=== PATIENT | female | born 1985 | race American Indian/Alaskan Native ===

== ENCOUNTER 2017-03-24 12:16 | Emergency (ER) | payer SELFPAY ==
[2017-03-24 12:28] VITALS: BP 139/91
[2017-03-24 12:50] LABS: Basophils % (Auto) 0.6 % (0.0-1.8); Eosinophils % (Auto) 5.7 % (0.0-4.3); Hematocrit 36.9 % (30.3-42.9); Hemoglobin 12.3 gm/dl (10.1-14.3); Mean Corpuscular HGB Conc 33 % (30-34); Mean Corpuscular Hemoglobin 33 pg (28-32); Mean Corpuscular Volume 98 fl (79-97); Platelet Count 277 K/mm3 (140-440); Red Blood Count 3.75 M/mm3 (3.65-5.03); Red Cell Distribution Width 15.4 % (13.2-15.2); White Blood Count 9.5 K/mm3 (4.5-11.0)
[2017-03-24 13:05] LABS: Anion Gap 16 mmol/L; BUN/Creatinine Ratio 12; Blood Urea Nitrogen 6 mg/dL (7-17); Carbon Dioxide 27 mmol/L (22-30); Chloride 96.7 mmol/L (98-107); Glucose 106 mg/dL (65-100); Potassium 4.5 mmol/L (3.6-5.0); Sodium 135 mmol/L (137-145)
[2017-03-24 14:30] LABS: Urine Drugs of Abuse Note Disclamer
[2017-03-24 14:46] LABS: Bacteria,Urine 1+ /HPF (Negative); Bilirubin,Urine NEG (Negative); Blood,Urine SM (Negative); Ketones,Urine NEG (Negative); Leukocyte Esterase,Urine TR (Negative); Mucus,Urine FEW /HPF; Nitrite,Urine POS (Negative); Urobilinogen,Urine < 2.0 mg/dL (<2.0)
== END 2017-03-24 12:33 | disposition left against medical advice (07) ==
LOC: ED 12:16
DX: F10.10 Alcohol abuse, uncomplicated (principal); Z53.21 Procedure and treatment not carried out due to patient leaving prior to being seen by health care provider
CPT/HCPCS: 36415; 80048; 80307; 81001; 81025; 85025; G0480; 80320

== ENCOUNTER 2017-07-31 01:02 | Emergency (ER) | payer SELFPAY ==
[2017-07-31 01:33] VITALS: BP 144/85
== END 2017-07-31 01:45 | disposition left against medical advice (07) ==
LOC: ED 01:02
DX: M79.603 Pain in arm, unspecified (principal); Z53.21 Procedure and treatment not carried out due to patient leaving prior to being seen by health care provider

== ENCOUNTER 2019-03-13 13:42 | Emergency (ER) | payer SELFPAY ==
--- NOTE | 2019-03-13 14:21 | Emergency Department Report ---
Blank Doc - Documentation Documentation: 34-year-old female that presents with neck and lower back pains. Denies any i njuries. This initial assessment/diagnostic orders/clinical plan/treatment(s) is/are subject to change based on patient's health status, clinical progression and re- assessment by fellow clinical providers in the ED. Further treatment and workup at subsequent clinical providers discretion. Patient/guardians urged not to elope from the ED as their condition may be serious if not clinically assessed and managed. Initial orders include: 1- Patient sent to [facility] for further evaluation and treatment
[2019-03-13 14:27] VITALS: BP 116/77
[2019-03-13] MEDS ORDERED: IBUPROFEN 800 MG TAB PO ONE (15:47)
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
== END 2019-03-13 17:35 | disposition home or self-care (01) ==
LOC: ED 13:42
DX: M54.2 Cervicalgia (principal); M54.5 Low back pain; I10 Essential (primary) hypertension; Z79.899 Other long term (current) drug therapy

== ENCOUNTER 2020-04-18 22:31 | Emergency (ER) | payer SELFPAY ==
[2020-04-18 23:16] VITALS: BP 120/91
[2020-04-18] MEDS ORDERED: ONDANSETRON 4 MG ODT TAB ONE (23:40)
[2020-04-18] MEDS ORDERED: ACETAMINOPHEN 325 MG TAB ONE (23:40)
[2020-04-18] MEDS ORDERED: ONDANSETRON 4 MG ODT TAB PO ONE (23:45)
[2020-04-18] MEDS ORDERED: ACETAMINOPHEN 325 MG TAB PO ONE (23:45)
[2020-04-19 00:04] LABS: Bacteria,Urine 1+ /HPF (Negative); Bilirubin,Urine NEG (Negative); Blood,Urine NEG (Negative); Color,Urine Yellow (Yellow); Mucus,Urine FEW /HPF; Protein,Urine <15 mg/dL mg/dL (Negative); Urobilinogen,Urine < 2.0 mg/dL (<2.0); WBC,Urine < 1.0 /HPF (0.0-6.0)
[2020-04-19 00:15] LABS: Alanine Aminotransferase 19 units/L (7-56); Albumin 4.2 g/dL (3.9-5); Blood Urea Nitrogen 9 mg/dL (7-17); Calcium 8.9 mg/dL (8.4-10.2); Hemolysis Index 2
[2020-04-19 00:16] LABS: BUN/Creatinine Ratio 13
[2020-04-19 00:38] LABS: Basophils % (Auto) 0.3 % (0.0-1.8); Eosinophils # (Auto) 0.7 K/mm3 (0.0-0.4); Eosinophils % (Auto) 6.3 % (0.0-4.3); Hematocrit 35.9 % (30.3-42.9); Hemoglobin 12.9 gm/dl (10.1-14.3); Lymphocytes # (Auto) 2.2 K/mm3 (1.2-5.4); Lymphocytes % (Auto) 21.3 % (13.4-35.0); Mean Corpuscular HGB Conc 36 % (30-34); Mean Corpuscular Volume 97 fl (79-97); Monocytes # (Auto) 0.7 K/mm3 (0.0-0.8); Platelet Count 333 K/mm3 (140-440); Red Cell Distribution Width 13.5 % (13.2-15.2)
[2020-04-19] MEDS ORDERED: IBUPROFEN 800 MG TAB PO ONE (01:54)
[2020-04-19] MEDS ORDERED: DICYCLOMINE 20 MG/2 ML INJ IM ONE (01:54)
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
== END 2020-04-19 03:35 | disposition home or self-care (01) ==
LOC: ED 22:31
DX: R10.9 Unspecified abdominal pain (principal); R11.2 Nausea with vomiting, unspecified; I10 Essential (primary) hypertension; F17.200 Nicotine dependence, unspecified, uncomplicated; Z91.018 Allergy to other foods
CPT/HCPCS: 36415; 80053; 81001; 83690; 84703; 85025; 96372; 99284; J0500; Q0162